=== PATIENT | female | born 1950 | race Caucasian/White ===

== ENCOUNTER 2022-06-23 12:34 | Emergency (ER) | payer MEDICARE ==
[~2022-06-23] VITALS: Ht 149.9 cm; Wt 77.1 kg
--- NOTE | 2022-06-23 13:00 | NUR ---
IV LINE ESTABLISHED, BLOOD DRAWN AND SENT TO LAB. PT TAKEN TO RADIOLOGY.
--- NOTE | 2022-06-23 13:15 | NUR ---
PT RETURNED FROM RADIOLOGY
[2022-06-23 13:22] LABS: BASOPHILS % (AUTO) 0.4 % (0.0-2.0); EOSINOPHILS % (AUTO) 1.3 % (0.0-6.0); HEMATOCRIT 46 % (33-45); HEMOGLOBIN 15.3 g/dL (11.5-14.8); LYMPHOCYTES # (AUTO) 2.3 K/uL (0.8-4.8); LYMPHOCYTES % (AUTO) 30.1 % (20.0-44.0); MEAN CORPUSCULAR HGB CONC 33 g/dl (31.0-36.0); MEAN CORPUSCULAR VOLUME 89 fL (82-100); MONOCYTES # (AUTO) 0.7 K/uL (0.1-1.30); MONOCYTES % (AUTO) 9.1 % (2.0-12.0); NEUTROPHILS # (AUTO) 4.4 K/uL (1.8-8.9); NEUTROPHILS % (AUTO) 59.1 % (43.0-81.0); PLATELET COUNT (AUTO) 221 K/uL (150-450); WHITE BLOOD COUNT (AUTO) 7.5 K/uL (4.3-11.0)
[2022-06-23] MEDS ORDERED: LOSA50TA39 PO (13:26)
[2022-06-23] MEDS ORDERED: MULT-447 PO (13:26)
[2022-06-23] MEDS ORDERED: SERT100T12 PO (13:26)
[2022-06-23] MEDS ORDERED: LEVO50TA8 PO (13:26)
[2022-06-23 13:55] LABS: CALCIUM, SERUM 9.5 mg/dL (8.5-10.1); CARBON DIOXIDE 25 mmol/L (21-32); CHLORIDE 103 mmol/L (98-107); CREATININE 0.7 mg/dL (0.6-1.3); GLUCOSE 127 mg/dL (74-106); POTASSIUM 4.4 mmol/L (3.5-5.1); SODIUM SERUM 141 mmol/L (136-145); UREA NITROGEN, BLOOD 17 mg/dL (7-18)
[2022-06-23] MEDS ORDERED: ASPIRIN 325 MG TABLET PO ONE (14:00)
[2022-06-23] MEDS ORDERED: ASPIRIN 325 MG TABLET ONE (14:04)
--- NOTE | 2022-06-23 14:20 | NUR ---
IV removed. Catheter intact and site benign. Pressure and 4x4 applied to site. No bleeding noted.
[2022-06-23] MEDS ORDERED: CLONIDINE HCL 0.1 MG TABLET PO PRN (14:30)
[2022-06-23 14:33] LABS: ALANINE AMINOTRANSFERASE 22 U/L (12-78); ALBUMIN 3.8 g/dL (3.4-5.0); ALKALINE PHOSPHATASE 101 U/L (46-116); ASPARTATE AMINOTRANSFERASE 21 U/L (15-37); BILIRUBIN,DIRECT 0.1 mg/dL (0.0-0.2); BILIRUBIN,TOTAL 0.5 mg/dL (0.2-1.0)
--- NOTE | 2022-06-23 14:40 | NUR ---
Patient discharged to home in stable condition. Written and verbal after care instructions given. Patient verbalizes understanding of instruction.
[2022-06-23 14:41] VITALS: BP 160/94
[2022-06-23] MEDS ORDERED: ATORVASTATIN 40 MG TABLET PO SCH (22:00)
[2022-06-24] MEDS ORDERED: ASPIRIN 81 MG TAB.CHEW PO SCH (09:00)
[2022-06-24] MEDS ORDERED: CLOPIDOGREL BISULFATE 75 MG TABLET PO SCH (09:00)
== END 2022-06-23 14:42 | disposition home or self-care (01) ==
LOC: ER 12:39
DX: R47.81 Slurred speech (principal); I10 Essential (primary) hypertension; Z88.2 Allergy status to sulfonamides; Z79.899 Other long term (current) drug therapy
CPT/HCPCS: 36415; 70450-TC; 71045-TC; 80048-TC; 80076-TC; 82962-TC; 84484-TC; 85025-TC; 85730-TC